=== PATIENT | female | born 1990 | race Caucasian/White ===

== ENCOUNTER 2023-02-22 15:33 | Emergency (ER) | payer OTHER, SELFPAY ==
[2023-02-22 16:17] VITALS: BP 138/85; PULSE 103; RESP 20; TEMP 36.6; O2SAT 98
[2023-02-22] MEDS: LACTATED RINGERS 1,000 ML 999 ML IV CONT (19:19)
[2023-02-22 19:29] LABS: Basophils Absolute Auto 0.1 K/mm3 (0.0-0.1); Basophils Percent Auto 0.5 % (0.2-1.2); Eosinophils Absolute Auto 0.2 K/mm3 (0-0.3); Eosinophils Percent Auto 1.7 % (0-4.4); Hematocrit 41.8 % (37.0-47.0); Hemoglobin 13.7 g/dL (12.0-15.0); Immature Granulocyte Absolute 0.02 K/mm3 (0.00-0.031); Immature Granulocyte Percent A 0.2 % (0-0.5); Lymphocytes Absolute Auto 3.25 K/mm3 (0.9-3.2); Lymphocytes Percent Auto 35.2 % (18.3-44.2); Mean Corpuscular HGB Conc 32.8 g/dl (32-36); Mean Corpuscular Hemoglobin 29.5 pg (26-34); Mean Corpuscular Volume 89.9 fl (80-100); Mean Platelet Volume 10.2 fl (7.4-10.4); Monocytes Absolute Auto 0.6 K/mm3 (0.1-0.6); Monocytes Percent Auto 6.9 % (2.6-8.5); Neutrophils Absolute Auto 5.1 K/mm3 (1.3-6.7); Neutrophils Percent Auto 55.5 % (45.5-73.1); Platelet Count Result 318 k/mm3 (150-375); Red Blood Count 4.65 M/mm3 (4.2-5.4); Red Cell Distribution Width 11.9 % (11.5-14.5); White Blood Count 9.2 K/mm3 (4.5-10.0)
[2023-02-22 19:37] LABS: Appearance Urine Turbid (Clear); Bacteria Urine 4+ /hpf; Bilirubin Urine Negative (Negative); Blood Urine Negative (Negative); Color Urine Yellow (Yellow); Glucose Urine UA Negative (Negative); Ketones Urine Trace mg/dL (Negative); Leukocyte Esterase Ur 3+ LEU/UL (Negative); Mucus Urine Present /lpf; Need Manual Microscopic Reviewed; Nitrate Urine Negative (Negative); Protein Urine 1+ mg/dL (Negative); RBC Urine 0-2 /hpf (0-2); Specific Grav Ur 1.029 (1.001-1.035); Squamous Epithelial Cell Urine Many /hpf (Few); Urobilinogen Urine 0.2 mg/dL (<2.0); WBC Urine 51-100 /hpf; pH Urine 5.5 (5.0-9.0)
[2023-02-22 19:38] LABS: Add Urine Microscopic? YES
[2023-02-22 19:38] LABS: Alanine Aminotransferase 17 U/L (6-35); Albumin Level 4.5 g/dL (3.5-5.1); Alkaline Phosphatase 66 U/L (38-126); Anion Gap 7 mmol/L (8-16); Aspartate Amino Transferase 24 U/L (14-36); Bilirubin,Total 0.4 mg/dL (0.2-1.3); Blood Urea Nitrogen 13 mg/dL (7-17); Calcium 9.5 mg/dL (8.4-10.2); Carbon Dioxide 27 mmol/L (22-30); Chloride 99 mmol/L (98-107); Estimated CRCL calculation 101 ml/min; Estimated Glomerular Filt Rate > 60; Glucose 122 mg/dL (65-110); Potassium 3.7 mmol/L (3.4-5.0); Sodium 133 mmol/L (137-145)
[2023-02-22 19:40] VITALS: BP 115/69; PULSE 77; RESP 20; O2SAT 100
--- NOTE | 2023-02-22 19:53 | ED.SKABFB ---
HPI - Skin/Abscess/Foreign Bdy General Chief complaint: Skin/Abscess/Foreign Body Stated complaint: drainage from umibilcus and cysts to axilla Time Seen by Provider: 02/22/23 18:01 Source: patient Mode of arrival: ambulatory Limitations: no limitations History of Present Illness HPI narrative: 32-year-old female presents today from chest not with multiple concerns. Patient was at [place] for drug detox but they wanted her evaluated due to multiple wounds and drainage from her umbilicus. Patient states that she was also at [facility] overnight. States that she has been sleeping intermittently mostly for the last month doing illicit drugs and living in a motel. Patient denies any fevers, body aches, chills, denies any dysuria, abdominal pain, back pain. Does endorse foul-smelling vaginal discharge. States that she does have a boyfriend at 1 sexual encounter in the last month. Unsure of any STDs. States that the discharge is thick and appears to be more yeastlike. Related Data Allergies Allergy/AdvReac Type Severity Reaction Status Date / Time tramadol Allergy Rash Verified 02/22/23 15:34 Review of Systems Review of Systems: All systems reviewed & are unremarkable except as noted in HPI and below Exam Const: General: cooperative, healthy appearing, comfortable, no acute distress and well developed Orientation/consciousness: patient oriented x3 HENMT: Head: normal to inspection Eyes: General: appearance normal, both eyes and all related structures Resp: Effort & Inspection: normal respiratory effort and able to speak in complete sentences Auscultation: clear to auscultation bilaterally Cardio: Rate: regular rate Rhythm: regular rhythm Heart sounds: S1 normal heart sound present and S2 normal heart sound present Skin: Other: Multiple scabs noted to multiple different areas of the body. Scabs noted to back, bellybutton, arms. 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 States her last usage was 24 hours ago. Neuro: General: patient oriented x3 Course Course Emergency Course: Patient with some tachycardia upon arrival due to multiple sores and some drainage from her umbilicus wound will obtain lab work and do IV fluids. Discussed vaginal discharge and testing capabilities at this time patient would like to be treated for STIs, yeast, and BV and declines a pelvic exam. Aware that pelvic exam can be done anytime all she has to do is asked. States she will follow-up with the health department. Needs to follow-up with the health department anyway for HIV testing due to her boyfriend being HIV positive. She has been with him for over a year. Last test was in October. Vital Signs Vital signs: Vital Signs Temperature 97.9 F 02/22/23 16:17 Pulse Rate 103 H 02/22/23 16:17 Respiratory Rate 20 02/22/23 16:17 Blood Pressure 138/85 02/22/23 16:17 Pulse Oximetry 98 02/22/23 16:17 Oxygen Delivery Room Air 02/22/23 16:17 Temperature 97.9 F 02/22/23 16:17 Pulse Rate 77 02/22/23 19:40 Respiratory Rate 20 02/22/23 19:40 Blood Pressure 115/69 02/22/23 19:40 Pulse Oximetry 100 02/22/23 19:40 Oxygen Delivery Room Air 02/22/23 16:17 MDM - Skin/Abscess/Foreign Bdy MDM Narrative Medical decision making narrative: 32-year-old female HPI as noted. Work-up including CBC, CMP, urinalysis, test. CBC without concerning findings CMP without concerning findings. Urinalysis consistent with a possible UTI. Patient does have concerns for STDs. At this time pelvic was declined but will treat. Patient to be discharged home and is in agreement with plan of care. Differential Diagnosis Differential diagnosis: Likely abscess of skin or subcutaneous tissue, urticaria, cellulitis, impetigo and contact dermatitis Medical Records Attestation: I reviewed the patient's medical records. Lab Data Attestation: I reviewed the patient's lab results. 02/22/23 19:21
[2023-02-22] MEDS: NITROFURANTOIN MONOHYD MACROCR 100 MG CAP PO (20:17)
[2023-02-22] MEDS: FLUCONAZOLE 150 MG TABLET PO (20:18)
[2023-02-22] MEDS: metroNIDAZOLE 250 MG TABLET 500 MG PO (20:18)
[2023-02-22] MEDS: DOXYCYCLINE HYCLATE 100 MG TABLET PO (20:18)
== END 2023-02-22 20:51 ==
PROVIDERS: Emergency Provider Nurse Practitioner Family
DX: L03.90 Cellulitis, unspecified (principal); N39.0 Urinary tract infection, site not specified; Z20.2 Contact with and (suspected) exposure to infections with a predominantly sexual mode of transmission
CPT/HCPCS: 36415; 80053; 81001; 81025; 85025; 87086; 87088; 96361; 96365; 99284; A9270; J0696; J7120